=== PATIENT | female | born 2000 | race Caucasian/White ===

== ENCOUNTER 2021-01-31 01:29 | Emergency (ER) | payer BC ==
[~2021-01-31] VITALS: Ht 149.9 cm; Wt 72.6 kg
--- NOTE | 2021-01-31 02:30 | NUR ---
[facility] into interview patient.
[2021-01-31] MEDS ORDERED: IBUPROFEN 800 MG TABLET ONE (03:28)
[2021-01-31] MEDS ORDERED: IBUPROFEN 800 MG TABLET PO ONE (03:30)
--- NOTE | 2021-01-31 04:40 | NUR ---
Patient discharged to home in stable condition with brother taking patient home. Written and verbal after care instructions given. Patient verbalizes understanding of instructions. Stressed follow up or return to ER for worsening s/s.
[2021-01-31 04:43] VITALS: BP 125/68
== END 2021-01-31 04:40 | disposition home or self-care (01) ==
LOC: EDBD 01:33 → ER 01:33
DX: S20.212A Contusion of left front wall of thorax, initial encounter (principal); S89.92XA Unspecified injury of left lower leg, initial encounter; S49.92XA Unspecified injury of left shoulder and upper arm, initial encounter; Y09 Assault by unspecified means; Y93.9 Activity, unspecified; Y92.89 Other specified places as the place of occurrence of the external cause; F31.9 Bipolar disorder, unspecified
CPT/HCPCS: 71101; 73090; A4663